=== PATIENT | male | born 1950 | race African-American/Black ===

== ENCOUNTER 2016-09-14 03:18 | Emergency (ER) | payer OTHER ==
--- NOTE | 2016-09-14 03:55 | ERNOTE ---
Date of Service: 09/14/16 Time Seen by Provider: 09/14/16 03:40 Stated Complaint: COLD Presenting Symptoms:: cough Source: patient Exam Limitations: no limitations Immunizations: IMMUNIZATION HX Immunizations Up to Date Yes History of Influenza Vaccine Yes Hx Pneumococcal Vaccination No Allergies/Adverse Reactions: Allergies No Known Allergies Allergy (Verified 10/30/15 08:29) Home Medications: HOME MEDICATIONS Sulfamethoxazole/Trimethoprim [Bactrim Ds] 1 tab PO BID #20 tab 10/30/15 [Last Taken Unknown] traMADol HCL [Ultram] 50 mg PO QID PRN #120 10/30/15 [Last Taken Unknown] Benzonatate [Tessalon Perle] 100 mg PO TID PRN #30 capsule 09/14/16 [Last Taken Unknown] - History of Present Ilness Narrative: Productive cough started on Wednesday. During the [employer] service he was coughing and felt hot, became diaphoretic. Denies any fever, chill, chest pain or dyspenia. Timing: constant Severity: mild Frequency/Possible Cause: Reports: frequent episodes Modifying Factors - Improves: Reports: other - none Modifying Factors - Worsens: Reports: other Associated Symptoms: Reports: denies symptoms Review of Systems - Review of Systems Constitutional: Present: no symptoms reported EYE: Present: no symptoms reported ENT: Present: no symptoms reported Respiratory: Present: no symptoms reported Cardiology: Present: no symptoms reported Gastrointestinal/Abdominal: Present: no symptoms reported Genitourinary: Present: no symptoms reported Musculoskeletal: Present: no symptoms reported Skin: Present: no symptoms reported Neurological: Present: no symptoms reported Endocrine: Present: no symptoms reported Hematologic/Lymphatic: Present: no symptoms reported Psych: Present: no symptoms reported - Patient's Past Medical History Patient History - Medical: No pertinent hx Patient History - Cardiac/Respiratory: No pertinent hx Patient History - Cancer: No Hx of Cancer Patient History - Surgical Procedures: No surgical history Patient History - Other: None - Family History mom Family History - Medical: Family History - Cardiac/Respiratory: Myocardial Infarction dad Family History - Medical: Family History - Cardiac/Respiratory: Myocardial Infarction - Social History Living Situations: significant other Smoking Status: Never smoker Alcohol Use: none Drug Use: none - Immunizations Immunizations Up to Date: Yes Hx Pneumococcal Vaccination: No History of Influenza Vaccine: Yes Physical Exam - Physical Exam General Appearance: Present: no apparent distress Eye Exam: Normal inspection: bilateral, EOMI: bilateral Ears, Nose, Throat: Present: normal ENT inspection Neck: Present: normal inspection Respiratory: Present: no respiratory distress, normal breath sounds Cardiovascular/Chest: Present: regular rate, rhythm, no murmur Gastrointestinal/Abdominal: Present: nontender, nondistended Back Exam: Present: normal inspection Extremity Exam: Present: normal inspection Neurological Exam: Present: alert, oriented, 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 Vital Signs: Vital Signs 09/14/16 03:23 Temperature 35.1 C L Pulse Rate 68 Respiratory 20 Rate Blood Pressure 185/106 - X-Ray X-Ray #1 X-Ray: chest Interpretation: Interp. by me, Reviewed by me X-ray Comments: No focal consolidation - Progress/Reassessment Chief Complaint: Cough Progress:: Unchanged Departure - Departure Clinical Impression: Bronchitis Disposition: Home self-care Condition: Good Instructions: Acute Bronchitis Print Language: Chinese Additional Instructions: Drink two liters of water at home today. Keep a record of your blood pressure over the next two weeks. See your doctor in the next 1-2 weeks. If you feel worse return to the ED. Referrals: Giovanni Luna DO [Non Staff Physicians] - Prescriptions: Benzonatate [Tessalon Perle] 100 mg PO TID PRN #30 capsule PRN Reason: Cough
[2016-09-14 06:11] VITALS: BP 180/100
== END 2016-09-14 06:12 | disposition home or self-care (01) ==
LOC: ER 03:18
DX: J40 Bronchitis, not specified as acute or chronic (principal)

== ENCOUNTER 2017-05-16 17:17 | Emergency (ER) | payer OTHER ==
--- NOTE | 2017-05-16 18:03 | ERNOTE ---
Medical Problem HPI - General Chief Complaint: General Assessment Time Seen by Provider: 05/16/17 17:52 Source: patient Exam Limitations: no limitations - Immun/Allergies/Home Medications Immunizations: IMMUNIZATION HX Immunizations Up to Date No History of Influenza Vaccine Yes Hx Pneumococcal Vaccination No Allergies/Adverse Reactions: Allergies No Known Allergies Allergy (Verified 10/30/15 08:29) Home Medications: HOME MEDICATIONS Aspirin 05/16/17 [Last Taken Unknown] Metoprolol Tartrate 05/16/17 [Last Taken Unknown] Vitamin B-12 05/16/17 [Last Taken Unknown] - History of Present History Narrative: Treva presents to the ER because he feels that his blood pressure is elevated. He stopped taking his metoprolol and today started it back up. He also complains that earlier on today [place] he felt discomfort in his belly. He tells me he no longer has belly pain at this time. Denies any nausea vomiting fevers or chills. He is worried about his blood pressure. Review of Systems - Review of Systems Constitutional: Present: no symptoms reported EYE: Present: no symptoms reported ENT: Present: no symptoms reported Respiratory: Present: no symptoms reported Cardiology: Present: no symptoms reported Gastrointestinal/Abdominal: Present: See HPI Genitourinary: Present: no symptoms reported Musculoskeletal: Present: no symptoms reported Skin: Present: no symptoms reported - Patient's Past Medical History Patient History - Medical: No pertinent hx Patient History - Cardiac/Respiratory: No pertinent hx, Hypertension Patient History - Cancer: No Hx of Cancer Patient History - Surgical Procedures: No surgical history Patient History - Other: None - Family History mom Family History - Medical: Family History - Cardiac/Respiratory: Myocardial Infarction dad Family History - Medical: Family History - Cardiac/Respiratory: Myocardial Infarction - Social History Living Situations: home Abuse History: No History of abuse Psych History: No pertinent hx Smoking Status: Never smoker Alcohol Use: none Drug Use: none - Immunizations Immunizations Up to Date: No Hx Pneumococcal Vaccination: No History of Influenza Vaccine: Yes Physical Exam - Physical Exam General Appearance: Present: wd/wn, alert, no apparent distress Head Exam: Present: normal inspection Ears, Nose, Throat: Present: normal ENT inspection Neck: Present: normal inspection Respiratory: Present: no respiratory distress, normal breath sounds, no accessory muscle use, chest nontender, lungs clear Cardiovascular/Chest: Present: regular rate, rhythm, no murmur, normal peripheral pulses Gastrointestinal/Abdominal: Present: normal bowel sounds, nontender, nondistended, soft, no organomegaly ED Progress - Vital Signs Patient's Vital Signs:: I have reviewed the patient's vital signs. Vital Signs: Vital Signs 05/16/17 17:27 Temperature 37.0 C Pulse Rate 64 Respiratory 14 Rate Blood Pressure 174/109 O2 Sat by Pulse 100 Oximetry - Progress/Reassessment Chief Complaint: General Assessment Plan - Plan Plan: This patient appears to be completely stable his blood pressure is slightly elevated I have advised him to take his metoprolol 25 mg 1 tablet by mouth every 12 hours. He does not have any abdominal pain right now and his exam is normal. He is to not stop his blood pressure medication and follow-up with his doctor next week Departure Clinical Impression: Hypertension Qualifiers: Hypertension type: unspecified Qualified Code(s): I10 - Essential (primary) hypertension - Departure Disposition: Home self-care Condition: Good Instructions: Hypertension, [id number] Additional Instructions: Please do not stop taking your blood pressure medication. If he abdominal pain returns please come back to the ER. Please follow-up with your doctor. Referrals: Giovanni Luna DO [Primary Care Provider] -
[2017-05-16 18:18] VITALS: BP 148/80
== END 2017-05-16 18:10 | disposition home or self-care (01) ==
LOC: ER 17:17
DX: I10 Essential (primary) hypertension (principal)